=== PATIENT | female | born 1980 | race Caucasian/White ===

== ENCOUNTER 2022-04-03 20:29 | Emergency (ER) | payer OTHER ==
[2022-04-03 20:49] VITALS: BMI 22.7
[2022-04-03 21:55] LABS: BASO % 2.4 % (0-2.0); EOS % 3.4 % (0-4.5); HEMATOCRIT 24.7 % (32.4-45.2); HEMOGLOBIN 7.5 GM/dL (10.7-15.3); LYMPH % 51.2 % (8-40); MCHC 30.2 g/dl (32.0-36.0); MEAN CELL VOLUME 60.3 fl (80-96); MEAN PLT VOLUME 8.2 fl (7.5-11.1); PLATELET COUNT 460 10^3/uL (134-434); RBC 4.11 M/mm3 (3.60-5.2); RDW 20.2 % (11.6-15.6); WHITE BLOOD COUNT 5.3 K/mm3 (4.0-10.0)
[2022-04-03 22:00] LABS: MCH 18.2 pg (25.7-33.7)
[2022-04-03 22:29] LABS: ALBUMIN 3.6 g/dl (3.4-5.0); BLOOD UREA NITROGEN 11.3 mg/dL (7-18)
[2022-04-03 22:32] LABS: CREATININE 0.7 mg/dL (0.55-1.3)
[2022-04-03 22:34] LABS: BILIRUBIN,TOTAL 0.2 mg/dL (0.2-1); TOT PROT 7.5 g/dl (6.4-8.2)
[2022-04-03 23:19] LABS: ANISOCYTOSIS 1+; MACROCYTOSIS 0; PLATELET ESTIMATE NORMAL
[2022-04-04 02:00] VITALS: RESP 18
[2022-04-04 04:12] VITALS: BP 122/78; PULSE 68; TEMP 97
== END 2022-04-04 06:20 | disposition home or self-care (01) ==
LOC: JER 20:29
DX: M79.672 Pain in left foot (principal)
CPT/HCPCS: 36415; 36430; 73630-TC-LT; 80053; 82962; 85025; 86850; 86900; 86901; 86922; 99284-25; P9058

== ENCOUNTER 2022-06-29 23:52 | Emergency (ER) | payer OTHER ==
[2022-06-29 23:59] VITALS: BP 141/90; PULSE 92; RESP 18; TEMP 98.3; BMI 20.3
[2022-06-30 01:28] LABS: BASO % 1.5 % (0-2.0); EOS % 4.8 % (0-4.5); HEMATOCRIT 30.5 % (32.4-45.2); HEMOGLOBIN 9.5 GM/dL (10.7-15.3); LYMPH % 48.6 % (8-40); MCH 21.1 pg (25.7-33.7); MCHC 31.3 g/dl (32.0-36.0); MEAN CELL VOLUME 67.2 fl (80-96); MEAN PLT VOLUME 8.3 fl (7.5-11.1); MONO % 11.5 % (3.8-10.2); NEUT % 33.6 % (42.8-82.8); PLATELET COUNT 364 10^3/uL (134-434); RBC 4.53 M/mm3 (3.60-5.2); RDW 22.8 % (11.6-15.6); WHITE BLOOD COUNT 3.6 K/mm3 (4.0-10.0)
[2022-06-30 01:30] LABS: EPI CELLS 12 /uL (0-25.1); HCG,QUALITATIVE URINE Negative; HYALINE CASTS 35 /uL (0-3.1); URINE APPEARANCE CLEAR; URINE BACTERIA >9,000 /uL (0-1359); URINE BILIRUBIN NEGATIVE (NEGATIVE); URINE COLOR YELLOW; URINE GLUCOSE (UA) NEGATIVE (NEGATIVE); URINE KETONE NEGATIVE (NEGATIVE); URINE LEUK ESTERASE 2+ (NEGATIVE); URINE NITRITE POSITIVE (NEGATIVE); URINE PROTEIN TRACE (NEGATIVE); URINE RBC 18 /uL (0-23.9); URINE WBC 651 /uL (0-25.8)
[2022-06-30] MEDS ORDERED: CEPHALEXIN MONOHYDRATE 500 MG CAPSULE (UD) ONE (01:45)
[2022-06-30 01:48] LABS: CHLORIDE 105 mmol/L (98-107); SODIUM 133 mmol/L (136-145)
[2022-06-30 01:49] LABS: CALCIUM 8.7 mg/dL (8.5-10.1)
[2022-06-30 01:50] LABS: ALBUMIN 3.5 g/dl (3.4-5.0); BLOOD UREA NITROGEN 15.3 mg/dL (7-18); CO2 28 mmol/L (21-32); GLUCOSE,RANDOM 90 mg/dL (74-106)
[2022-06-30 01:53] LABS: SGOT/AST 124 U/L (15-37)
[2022-06-30 01:55] LABS: BILIRUBIN,TOTAL 0.4 mg/dL (0.2-1); TOT PROT 7.8 g/dl (6.4-8.2)
[2022-06-30 01:56] LABS: ALK PHOS 78 U/L (45-117)
[2022-06-30 02:01] LABS: ANION GAP 0 MMOL/L (8-16); CREATININE 0.8 mg/dL (0.55-1.3); SGPT/ALT 41 U/L (13-61)
[2022-06-30 05:43] LABS: ANISOCYTOSIS 3+; MACROCYTOSIS 0; OVALOCYTE 1+; TARGET CELLS 1+
== END 2022-06-30 01:53 | disposition home or self-care (01) ==
LOC: JERFT 23:52
DX: N30.90 Cystitis, unspecified without hematuria (principal)
CPT/HCPCS: 36415; 80053; 81003; 84703; 85025; 87086; 87186; 99283-25

== ENCOUNTER 2022-09-11 20:18 | Emergency (ER) | payer OTHER ==
[2022-09-11 20:31] VITALS: BP 130/87; PULSE 99; RESP 18; TEMP 98; BMI 22.7
== END 2022-09-11 23:14 | disposition home or self-care (01) ==
LOC: JERFT 20:18 → JER 20:18 → JERFT 23:14
DX: K04.7 Periapical abscess without sinus (principal)
CPT/HCPCS: 99281-25

== ENCOUNTER 2022-09-14 18:14 | Emergency (ER) | payer OTHER ==
[2022-09-14 18:30] VITALS: BP 121/74; PULSE 88; RESP 19; TEMP 99; BMI 22.7
== END 2022-09-14 20:06 | disposition home or self-care (01) ==
LOC: JER 18:14
DX: Z20.822 Contact with and (suspected) exposure to COVID-19 (principal)
CPT/HCPCS: 99283-25; C9803-CS; U0003; U0005

== ENCOUNTER 2022-09-29 19:28 | Emergency (ER) | payer OTHER ==
[2022-09-29 19:48] VITALS: BP 125/83; PULSE 100; RESP 18; TEMP 98.1; BMI 20.9
[2022-09-29] MEDS ORDERED: SULFAMETHOXAZOLE/TRIMETHOPRIM 800MG/160MG D.S. TABLET PO ONE (21:54)
[2022-09-29] MEDS ORDERED: CEPHALEXIN MONOHYDRATE 500 MG CAPSULE (UD) PO ONE (21:54)
[2022-09-29] MEDS ORDERED: CEPHALEXIN MONOHYDRATE 500 MG CAPSULE (UD) ONE (22:12)
[2022-09-29] MEDS ORDERED: SULFAMETHOXAZOLE/TRIMETHOPRIM 800MG/160MG D.S. TABLET ONE (22:12)
== END 2022-09-29 22:53 | disposition home or self-care (01) ==
LOC: JER 19:28
DX: K12.2 Cellulitis and abscess of mouth (principal)
CPT/HCPCS: 99283-25

== ENCOUNTER 2023-10-06 22:57 | Emergency (ER) | payer OTHER ==
[2023-10-06 23:08] VITALS: BMI 27.3
[2023-10-07 02:50] VITALS: BP 128/76; PULSE 78; RESP 18; TEMP 98.1
== END 2023-10-07 02:50 | disposition home or self-care (01) ==
LOC: JER 22:57
DX: K13.79 Other lesions of oral mucosa (principal); L29.9 Pruritus, unspecified
CPT/HCPCS: 99283-25

== ENCOUNTER 2024-10-21 08:37 | Inpatient (IN) | payer OTHER ==
[2024-10-21] MEDS ORDERED: ONDANSETRON 4 MG/2 ML VIAL ONE (10:00)
[2024-10-21] MEDS: SODIUM CHLORIDE 0.9% 500 ML INFUS.BAG IV ONE (10:24)
[2024-10-21] MEDS: ONDANSETRON 4 MG/2 ML VIAL IVPUSH ONE (10:25)
[2024-10-21 10:39] LABS: BASO % 1.1 % (0-2.0); EOS % 0.6 % (0-4.5); HEMATOCRIT 23.6 % (32.4-45.2); LYMPH % 38.8 % (8-40); MCHC 27.9 g/dl (32.0-36.0); MEAN CELL VOLUME 55.7 fl (80-96); MEAN PLT VOLUME 8.1 fl (7.5-11.1); MONO % 15.8 % (3.8-10.2); NEUT % 43.7 % (42.8-82.8); PLATELET COUNT 463 10^3/uL (134-434); RBC 4.24 M/mm3 (3.60-5.2); RDW 22.1 % (11.6-15.6); WHITE BLOOD COUNT 3.2 K/mm3 (4.0-10.0)
[2024-10-21 10:41] LABS: MCH 15.5 pg (25.7-33.7)
[2024-10-21 10:45] LABS: HEMOGLOBIN 6.6 GM/dL (10.7-15.3)
[2024-10-21 11:09] LABS: POTASSIUM 3.8 mmol/L (3.5-5.1)
[2024-10-21 11:11] LABS: CALCIUM 8.2 mg/dL (8.5-10.1)
[2024-10-21 11:12] LABS: ALBUMIN 3.2 g/dl (3.4-5.0); BLOOD UREA NITROGEN 10.5 mg/dL (7-18)
[2024-10-21 11:13] LABS: ANISOCYTOSIS 2+; MACROCYTOSIS 0
[2024-10-21 11:15] LABS: CREATININE 0.6 mg/dL (0.55-1.3)
[2024-10-21 11:16] LABS: BILIRUBIN,TOTAL 0.4 mg/dL (0.2-1); TOT PROT 7.1 g/dl (6.4-8.2)
[2024-10-21 12:52] LABS: EPI CELLS 21 /uL (0-25.1); HYALINE CASTS 1 /uL (0-3.1); PH,URINE 5.5 (5.0-8.0); URINE APPEARANCE CLEAR; URINE BACTERIA >9,000 /uL (0-1359); URINE BILIRUBIN NEGATIVE (NEGATIVE); URINE COLOR YELLOW; URINE GLUCOSE (UA) NEGATIVE (NEGATIVE); URINE KETONE NEGATIVE (NEGATIVE); URINE LEUK ESTERASE NEGATIVE (NEGATIVE); URINE NITRITE POSITIVE (NEGATIVE); URINE PROTEIN NEGATIVE (NEGATIVE); URINE RBC 19 /uL (0-23.9); URINE WBC 22 /uL (0-25.8)
[2024-10-21 14:17] LABS: HIV INTERPRETATION NEGATIVE (NEGATIVE)
[2024-10-21] MEDS ORDERED: ALPRAZolam 1 MG TABLET PO PRN (14:47)
[2024-10-21] MEDS ORDERED: ONDANSETRON 4 MG/2 ML VIAL IVPUSH PRN (15:22)
[2024-10-21] MEDS ORDERED: CEFTRIAXONE 1 G/50 ML PREMIX 50 ML IVPB ONE (16:15)
[2024-10-21] MEDS: SODIUM CHLORIDE 1,000 ML IV STA (16:24)
[2024-10-21] MEDS: CEFTRIAXONE 1 G/50 ML PREMIX 50 ML IVPB SCH (16:24)
[2024-10-21 18:09] VITALS: BMI 22.8
[2024-10-21] MEDS: SODIUM CHLORIDE 1,000 ML IV SCH (18:10)
[2024-10-21 19:11] LABS: HEMATOCRIT 25.6 % (32.4-45.2); HEMOGLOBIN 7.4 GM/dL (10.7-15.3); MCH 17.4 pg (25.7-33.7); MCHC 29.1 g/dl (32.0-36.0); MEAN CELL VOLUME 59.9 fl (80-96); RBC 4.27 M/mm3 (3.60-5.2); WHITE BLOOD COUNT 3.9 K/mm3 (4.0-10.0)
[2024-10-21 19:12] LABS: BASO % 1.1 % (0-2.0); EOS % 0.9 % (0-4.5); MEAN PLT VOLUME 8.1 fl (7.5-11.1); MONO % 16.8 % (3.8-10.2); NEUT % 51.2 % (42.8-82.8); PLATELET COUNT 415 10^3/uL (134-434); RETICULOCYTES 0.84 % (0.5-1.5)
[2024-10-21 21:34] LABS: COCAINE, UR NEGATIVE (NEGATIVE); METHADONE, UR NEGATIVE (NEGATIVE); OPIATES, URI NEGATIVE (NEGATIVE); URINE BARBITURATES NEGATIVE (NEGATIVE); URINE BENZODIAZEPINES NEGATIVE (NEGATIVE)
[2024-10-21 21:35] LABS: PHENCYCLIDINE,URINE NEGATIVE (NEGATIVE)
[2024-10-21 21:37] LABS: URINE AMPHETAMINES POSITIVE (NEGATIVE)
[2024-10-22 09:00] LABS: BASO % 1.1 % (0-2.0); EOS % 1.6 % (0-4.5); HEMATOCRIT 25.4 % (32.4-45.2); HEMOGLOBIN 7.6 GM/dL (10.7-15.3); LYMPH % 23.1 % (8-40); MCHC 29.8 g/dl (32.0-36.0); MEAN CELL VOLUME 58.5 fl (80-96); MEAN PLT VOLUME 8.1 fl (7.5-11.1); MONO % 11.1 % (3.8-10.2); NEUT % 63.1 % (42.8-82.8); PLATELET COUNT 418 10^3/uL (134-434); RBC 4.35 M/mm3 (3.60-5.2); RDW 25.1 % (11.6-15.6); WHITE BLOOD COUNT 4.6 K/mm3 (4.0-10.0)
[2024-10-22 09:06] LABS: ADD RBC MORPHOLOGY YES; MCH 17.4 pg (25.7-33.7)
[2024-10-22 09:28] LABS: ALBUMIN 2.8 g/dl (3.4-5.0); BLOOD UREA NITROGEN 4.5 mg/dL (7-18); MAGNESIUM 1.6 mg/dL (1.8-2.4)
[2024-10-22 09:31] LABS: CREATININE 0.5 mg/dL (0.55-1.3)
[2024-10-22 09:32] LABS: PHOSPHOROUS 2.5 mg/dL (2.5-4.9)
[2024-10-22 09:33] LABS: BILIRUBIN,TOTAL 0.4 mg/dL (0.2-1); TOT PROT 6.2 g/dl (6.4-8.2)
[2024-10-22] MEDS: MAGNESIUM 1GM/D5W 100ML - 100 ML IVPB IVPB ONE (10:31)
[2024-10-22] MEDS ORDERED: FERROUS SO4 325 MG TABLET (FP) PO SCH (11:45)
[2024-10-22] MEDS: DEXTROAMPHETAMINE/AMPHETAMINE 10 MG CAP.ER.24H PO SCH (13:12)
[2024-10-22] MEDS: IRON SUCROSE INJECTION 100 MG in SODIUM CHLORIDE 95 ML IVPB ONE (13:15)
[2024-10-23 09:21] LABS: BASO % 0.9 % (0-2.0); EOS % 2.7 % (0-4.5); HEMATOCRIT 26.4 % (32.4-45.2); HEMOGLOBIN 7.7 GM/dL (10.7-15.3); LYMPH % 38.3 % (8-40); MCHC 29.3 g/dl (32.0-36.0); MEAN CELL VOLUME 60.2 fl (80-96); MEAN PLT VOLUME 8.2 fl (7.5-11.1); NEUT % 48.1 % (42.8-82.8); PLATELET COUNT 442 10^3/uL (134-434); RBC 4.39 M/mm3 (3.60-5.2); RDW 25.5 % (11.6-15.6); WHITE BLOOD COUNT 4.1 K/mm3 (4.0-10.0)
[2024-10-23 09:23] LABS: MCH 17.6 pg (25.7-33.7)
[2024-10-23 09:38] LABS: POTASSIUM 3.8 mmol/L (3.5-5.1)
[2024-10-23 09:47] LABS: CALCIUM 8.2 mg/dL (8.5-10.1)
[2024-10-23 09:48] LABS: ALBUMIN 2.9 g/dl (3.4-5.0)
[2024-10-23 09:50] LABS: CREATININE 0.5 mg/dL (0.55-1.3); PHOSPHOROUS 2.8 mg/dL (2.5-4.9)
[2024-10-23 09:52] LABS: BILIRUBIN,TOTAL 0.6 mg/dL (0.2-1)
[2024-10-23 09:53] LABS: MAGNESIUM 1.8 mg/dL (1.8-2.4)
[2024-10-23 09:58] LABS: TOT PROT 6.3 g/dl (6.4-8.2)
[2024-10-23] MEDS: IRON SUCROSE INJECTION 200 MG in SODIUM CHLORIDE 100 ML IVPB ONE (11:38)
[2024-10-23] MEDS: DEXTROAMPHETAMINE/AMPHETAMINE 10 MG CAP.ER.24H PO SCH (16:08)
[2024-10-23 19:14] VITALS: RESP 18
[2024-10-24 08:44] LABS: HEMATOCRIT 28.4 % (32.4-45.2); HEMOGLOBIN 8.3 GM/dL (10.7-15.3); MCHC 29.2 g/dl (32.0-36.0); MEAN CELL VOLUME 59.7 fl (80-96); MEAN PLT VOLUME 8.2 fl (7.5-11.1); PLATELET COUNT 478 10^3/uL (134-434); RBC 4.75 M/mm3 (3.60-5.2); RDW 26.9 % (11.6-15.6); WHITE BLOOD COUNT 4.6 K/mm3 (4.0-10.0)
[2024-10-24 08:47] LABS: MCH 17.4 pg (25.7-33.7)
[2024-10-24 09:04] LABS: POTASSIUM 3.9 mmol/L (3.5-5.1)
[2024-10-24 09:05] LABS: BLOOD UREA NITROGEN 8.1 mg/dL (7-18); CALCIUM 8.7 mg/dL (8.5-10.1); MAGNESIUM 1.8 mg/dL (1.8-2.4)
[2024-10-24 09:09] LABS: CREATININE 0.5 mg/dL (0.55-1.3); PHOSPHOROUS 3.2 mg/dL (2.5-4.9)
[2024-10-24] MEDS: IRON SUCROSE INJECTION 200 MG in SODIUM CHLORIDE 100 ML IVPB ONE (11:35)
[2024-10-24 17:38] VITALS: BP 112/75; PULSE 77; TEMP 98.9
== END 2024-10-24 17:39 | disposition home or self-care (01) | DRG 663 ==
LOC: JER 08:37 → JERBED 14:23 → INTOOBSV 14:23 → J5S 17:02 → OBSVTOIN 10-23 07:45
PROVIDERS: ADMIT Student in an Organized Health Care Education/Training Program
DX: D50.9 Iron deficiency anemia, unspecified (principal); F20.9 Schizophrenia, unspecified; A08.4 Viral intestinal infection, unspecified; F90.9 Attention-deficit hyperactivity disorder, unspecified type; Z98.84 Bariatric surgery status; J45.909 Unspecified asthma, uncomplicated; N39.0 Urinary tract infection, site not specified
CPT/HCPCS: 0241U-QW; 36415; 36430; 36511; 74177-TC; 80048; 80053; 80307; 81003; 82272; 82607; 82728; 82746; 83021; 83540; 83550; 83735; 84100; 84425; 84703; 85025; 85027; 85045; 85660; 86803; 86850; 86900; 86901; 86922; 87045; 87046; 87086; 87186; 87389; 93005; 93010; 99285-25; G0378; J1756; P9038; P9058

== ENCOUNTER 2024-11-09 13:26 | Day surgery (SDC) | payer OTHER ==
[2024-11-09] MEDS: FERRIC CARBOXYMALTOSE 750 MG in SODIUM CHLORIDE 250 ML IVPB ONE (13:53)
[2024-11-09 14:53] VITALS: RESP 18; TEMP 97.6
[2024-11-09 15:20] VITALS: BP 118/74; PULSE 78
== END 2024-11-09 14:30 | disposition home or self-care (01) ==
LOC: JONCNONCHE 13:26
PROVIDERS: ATTEND Internal Medicine Hematology & Oncology
PROC: 3E033GC Introduction of Other Therapeutic Substance into Peripheral Vein, Percutaneous Approach (ICD-10-PCS; principal; 2024-11-09)
DX: D50.0 Iron deficiency anemia secondary to blood loss (chronic) (principal)
CPT/HCPCS: 96365; J1439